=== PATIENT | male | born 1955 | race Caucasian/White ===

== ENCOUNTER → 2017-03-24 | Outpatient (CLI) | payer OTHER ==
--- NOTE | 2017-03-24 09:10 | RADRPT ---
EXAM DATE/TIME: 03/24/2017 09:00 [place] COMPARISON: No previous studies available for comparison. INDICATIONS : Renal calculus. Patient stated right side pain and kidney stone. MEDICAL HISTORY : None. SURGICAL HISTORY : None. ENCOUNTER: Initial ACUITY: 3 weeks PAIN SCORE: 3/10 LOCATION: Abdomen. FINDINGS: Supine view of the abdomen was performed. The abdominal bowel gas pattern is normal. 1 cm calcificat ion just to the right of L1. 6 mm calcification overlies the iliac crest. No abnormal masses or organ omegaly is seen. The osseous structures are unremarkable. CONCLUSION: 1. 1 cm calcification to the right of L1 could be renal calculus or gallstone. 2. 6 mm calcification overlying the left iliac crest of uncertain etiology but could be renal or soft tissue calcification. Mat Scales MD on March 24, 2017 at 9:06 Board Certified Radiologist. This report was verified electronically.
== END ==
LOC: HRAD 08:43
DX: N20.0 Calculus of kidney (principal)
CPT/HCPCS: 74018